=== PATIENT | female | born 1980 | race Caucasian/White ===

== ENCOUNTER 2020-02-18 09:38 | Emergency (ER) | payer OTHER, SELFPAY ==
[2020-02-18 09:42] VITALS: BP 138/82; PULSE 97; RESP 18; TEMP 36.5; O2SAT 100
--- NOTE | 2020-02-18 10:15 | ED.DENTAL ---
HPI - Dental/Oral General Chief complaint: Dental/Oral Stated complaint: Toothache Time Seen by Provider: 02/18/20 09:52 Source: patient Mode of arrival: ambulatory Limitations: no limitations History of Present Illness HPI Narrative: Patient is a 39-year-old female who presents to the emergency department with complaint of toothache. Patient reports onset of symptoms several days ago. Patient contacted her dentist and was started on clindamycin 300 mg twice daily on 02/12/2020. Patient was switched to Augmentin 875/125 twice daily on 02/16/2020. Patient was supposed to see her dentist today for further care. Patient's son had gone to the office for an appointment and had a temperature above 100 and was turned away from his appointment. Patient was contacted and advised that since her son had screened out for an elevated temperature, that she was not allowed to come in for her visit today. Patient reports development of some gum swelling around the tooth and was concerned that the infection may be getting worse. She denies any fever or other complaints. She is able to eat. She has been taking Tylenol and ibuprofen for pain. Patient had a root canal to that tooth several months ago. Complaint: tooth pain Location: Tooth # (19) Onset (ago): day(s) Duration: constant Associated symptoms: gum swelling Treatment prior to arrival: oral analgesic Related Data Allergies Allergy/AdvReac Type Severity Reaction Status Date / Time venom-wasp Allergy Swelling Verified 09/10/19 11:15 Review of Systems Review of Systems: All systems reviewed & are unremarkable except as noted in HPI and below PMFSH Past Medical History Medical History Depressive disorder, not elsewhere classified Migraine without aura, not intractable, with status migrainosus Surgical History Surgical History H/O sinus surgery (06/07/09) History of bilateral tubal ligation (2006) History of hysterectomy (10/07/07) Hx of cholecystectomy (05/13/04) Social History Social History Smoking status: Never smoker Alcohol intake: current Additional occupation/education comments: RN at [employer] Gender identity (if verbalized by the patient): Female Agree to blood products: Yes Exam Const: General: cooperative, no acute distress and alert Nutritional Appearance: well nourished Orientation/consciousness: patient oriented x3 Limitations: no limitations HENMT: Face images: 1. Mild swelling Mouth: Yes lip normal, Yes moist mucous membranes, Yes Abnormal oral and palatal mucosa present, Yes tongue abnormal not elevated, No trismus and No restricted motion Teeth and gingiva: abnormal tooth and associated gingiva lower left first molar tender and with associated gingival edema; without associated gingival fluctuance Resp: Effort & Inspection: normal respiratory effort Skin: General skin exam: normal color Neuro: General: patient oriented x3 Cognition (Neuro): normal cognition Speech: normal speech Extrem: General: normal to inspection, full ROM and no clubbing, cyanosis or edema Psych: Mental Status: mental status grossly normal Affect: normal affect Attitude: cooperative Course Course Emergency Course: Patient with mild swelling surrounding molar previously subjected to root canal. Area is tender, but there is no fluctuance to suggest definite abscess and certainly nothing amenable to drainage in the emergency department. Patient does not have any swelling or tenderness of the floor the mouth or any adenopathy in the neck to suggest Ludewig's angina or extension of localized dental infection. Patient had been on sub-therapeutic dosing of clindamycin before being switched to appropriate dosing of Augmentin. Advised to continue Augmentin and could finish out clindamycin at a
== END 2020-02-18 10:39 | disposition home or self-care (01) ==
PROVIDERS: Emergency Provider Emergency Medicine; PCP Family Medicine
DX: K04.7 Periapical abscess without sinus (principal)
CPT/HCPCS: 99281

== ENCOUNTER 2020-08-30 09:57 | Outpatient (CLI) | payer OTHER, SELFPAY ==
--- NOTE | ~2020-08-30 | MM_ITS ---
EXAMINATION: MM screening jaleel BI w bc HISTORY: Screening mammogram TECHNIQUE: Craniocaudal and mediolateral oblique 3-D tomosynthesis images were obtained and synthetic 2-D images were generated. CAD analysis was submitted and interpreted. COMPARISON: No prior mammogram is available for comparison at this institution. BREAST PARENCHYMAL COMPOSITION: There are scattered areas of fibroglandular density. FINDINGS: There is no evidence of suspicious mass, calcification, or architectural distortion to sugg est malignancy in either breast. There has been no suspicious interval change. IMPRESSION: 1. No mammographic evidence of malignancy. 2. Recommend routine screening mammography in one year. BI-RADS Category 1: Negative Reviewed, dictated and finalized at location A. P PRESIDENT
== END 2020-08-30 09:58 | disposition home or self-care (01) ==
LOC: ANHIMG 10:00
PROVIDERS: PCP Family Medicine; Visit Provider Family Medicine
DX: Z12.31 Encounter for screening mammogram for malignant neoplasm of breast (principal)
CPT/HCPCS: 77063; 77067

== ENCOUNTER 2020-10-27 01:30 | Day surgery (SDC) | payer OTHER, SELFPAY ==
[2020-10-17 11:18] VITALS: BMI 29.0
--- NOTE | 2020-10-17 11:39 | PC.NURSE ---
Pt. was Covid + on 09/11/2020. Pt. states symptoms included headache, body aches, fatigue, and nasal congestion. Per balta from Dr. Desir, pt. does not require Covid swab prior to scheduled endoscopy on 10/27/2020. Yoav Mccormack RN.
[2020-10-27 06:14] VITALS: BP 118/85; PULSE 92; RESP 20; TEMP 36.7; O2SAT 100
[2020-10-27] MEDS: LACTATED RINGERS 1,000 ML 150 ML IV CONT (06:27)
--- NOTE | 2020-10-27 07:18 | WPDANESEPPF ---
Anes - Initial Pre Proc Eval Procedure: Operation Date: 10/27/20 07:30 Proposed Procedures p Screening Colonoscopy - Tom Turner DO Date/Time: 10/27/20 07:18 Surgeon: Tom Turner DO Pre Op Diagnosis: Neoplasm Screening Patient Data Age: 40 Gender: F Height: 5 ft 2 in Weight: 74.9 kg Last Vital Signs Temp 98.0 F 10/27/20 06:14 Pulse 92 10/27/20 06:14 Resp 20 10/27/20 06:14 BP 118/85 10/27/20 06:14 Pulse Ox 100 10/27/20 06:14 Allergies Allergy/AdvReac Type Severity Reaction Status Date / Time midazolam [From Versed] Allergy Agitated Verified 10/27/20 06:12 venom-wasp Allergy Swelling Verified 10/27/20 06:12 Home Medications Medication Instructions Recorded Confirmed Type melatonin 10 mg PO HS PRN 10/17/20 10/17/20 History Patient hx anesthesia problems: none Family hx anesthesia problems: none PMFSH Past Medical History Medical History (Updated 02/19/20 @ 00:00 by Magalie Whatley) Depressive disorder, not elsewhere classified Migraine without aura, not intractable, with status migrainosus Surgical History Surgical History H/O sinus surgery (06/07/09) History of bilateral tubal ligation (2006) History of hysterectomy (10/07/07) Hx of cholecystectomy (05/13/04) Family History Family History (Updated 07/27/20 @ 13:59 by Padma Jon [facility]) Mother Diabetes mellitus Carcinoma of colon, Onset Age: 55 passed at age 61 Family history of coronary artery disease Father Hypertension Family history of pancreatic cancer, Onset Age: 65 Family history of coronary artery disease Grandparent Family history of malignant neoplasm of breast Family history of coronary artery disease Social History Social History Smoking status: Never smoker Alcohol intake: current Drinks per week: 12 Alcohol use details: saul Living arrangements: with family 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 Questions were solicited and answers provided to the satisfaction of the patient/family/POA.
--- NOTE | 2020-10-27 07:40 | PM.IMHP ---
H&P: HPI History of Present Illness Date/Time: 10/27/20 07:40 Chief Complaint: Patient here for colonoscopy Narrative: Reason for visit colonoscopy. This very pleasant lady seen in consultation request of the primary physician. Impression: Screening colonoscopy. Patient has a strong family history of colon cancer in mother, maternal grandfather, maternal aunt and a maternal grandmother with ulcerative colitis. She is here for screening colonoscopy. This is her 1st colonoscopy. GI review systems negative. Mother did have skin cancer. Migraine cephalgia. Recommendation: Colonoscopy. Genetic testing for colon cancer/Arana syndrome. History: Very pleasant lady's negative GI review systems. She has a strong family history of colon cancer. Physical examination: General: very pleasant patient in no acute distress. HEENT: Head was normocephalic sclerae is clear mouth without masses neck was supple. Heart: Rate rhythm regular without S3 or S4. Lungs: CTA. Abdomen: Soft with no guarding or rigidity. Bowel sounds were active. Neurologic: Cranial nerves 2 through 12 intact. No focal defects. No clonus. Musculoskeletal system: Revealed no joint tenderness or swelling no muscle atrophy. Extremities: Reveal no significant edema. Skin: Warm and dry with normal turgor. Mental status: intact. Patient is alert and oriented. Review of Systems Review of Systems: All systems reviewed & are unremarkable except as noted in HPI and below PMFSH Past Medical History Medical History (Updated 02/19/20 @ 00:00 by Magalie Whatley) Depressive disorder, not elsewhere classified Migraine without aura, not intractable, with status migrainosus Surgical History Surgical History H/O sinus surgery (06/07/09) History of bilateral tubal ligation (2006) History of hysterectomy (10/07/07) Hx of cholecystectomy (05/13/04) Family History Family History (Updated 07/27/20 @ 13:59 by Padma Jon 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
[2020-10-27 08:04] VITALS: BP 84/51; PULSE 74; RESP 18; O2SAT 100
[2020-10-27 08:14] VITALS: BP 99/73; PULSE 83; RESP 24; O2SAT 100
[2020-10-27 08:24] VITALS: BP 109/79; PULSE 79; RESP 24; O2SAT 100
== END 2020-10-27 08:39 | disposition home or self-care (01) ==
PROVIDERS: Family Provider Family Medicine; PCP Family Medicine; Visit Provider Internal Medicine Gastroenterology
PROC: 0DJD8ZZ Inspection of Lower Intestinal Tract, Via Natural or Artificial Opening Endoscopic (ICD-10-PCS; CPT 45378; principal; 2020-10-27 07:30)
DX: Z12.11 Encounter for screening for malignant neoplasm of colon (principal); K63.89 Other specified diseases of intestine; Z80.0 Family history of malignant neoplasm of digestive organs
CPT/HCPCS: 45378; J2001; J2704; J7120

== ENCOUNTER 2021-09-27 07:16 | Outpatient (CLI) | payer OTHER, SELFPAY ==
[2021-09-27 07:52] LABS: Alanine Aminotransferase 23 U/L (4-35); Albumin Level 4.6 g/dL (3.5-5.1); Alkaline Phosphatase 50 U/L (38-126); Anion Gap 9 mmol/L (8-16); Aspartate Amino Transferase 25 U/L (14-36); Bilirubin,Total 0.9 mg/dL (0.2-1.3); Blood Urea Nitrogen 10 mg/dL (7-17); Calcium 9.3 mg/dL (8.4-10.2); Carbon Dioxide 28 mmol/L (22-30); Chloride 102 mmol/L (98-107); Cholesterol 177 mg/dL (0-200); Estimated Glomerular Filt Rate > 60; Glucose 96 mg/dL (65-110); HDL Direct 79 mg/dL; Potassium 3.7 mmol/L (3.4-5.0); Sodium 139 mmol/L (137-145); Triglycerides 118 mg/dL (<150)
[2021-09-27 08:03] LABS: LDL Cholesterol Direct 74 mg/dL
[2021-09-27 08:06] LABS: Hematocrit 43.1 % (37.0-47.0); Hemoglobin 14.8 g/dL (12.0-15.0); Mean Corpuscular HGB Conc 34.3 g/dl (32-36); Mean Corpuscular Volume 93.1 fl (80-100); Mean Platelet Volume 9.7 fl (7.4-10.4); Platelet Count Result 224 k/mm3 (150-375); Red Blood Count 4.63 M/mm3 (4.2-5.4); Red Cell Distribution Width 12.5 % (11.5-14.5)
== END 2021-09-27 07:17 | disposition home or self-care (01) ==
PROVIDERS: PCP Family Medicine; Visit Provider Physician Assistant
DX: Z00.00 Encounter for general adult medical examination without abnormal findings (principal)
CPT/HCPCS: 36415; 80053; 80061; 84443; 85027

== ENCOUNTER 2021-09-27 08:57 | Outpatient (CLI) | payer OTHER, SELFPAY ==
--- NOTE | ~2021-09-27 | MM_ITS ---
EXAMINATION: MM screening jaleel BI w bc HISTORY: Screening mammogram TECHNIQUE: Craniocaudal and mediolateral oblique 3-D tomosynthesis images were obtained and synthetic 2-D images were generated. CAD analysis was submitted and interpreted. COMPARISON: 08/30/2020 BREAST PARENCHYMAL COMPOSITION: There are scattered areas of fibroglandular density. FINDINGS: There is no evidence of suspicious mass, calcification, or architectural distortion to sugg est malignancy in either breast. There has been no suspicious interval change. IMPRESSION: 1. No mammographic evidence of malignancy. 2. Recommend routine screening mammography in one year. BI-RADS Category 1: Negative Reviewed, dictated and finalized at location A. TENANCE CARPENTER
== END 2021-09-27 08:58 | disposition home or self-care (01) ==
LOC: ANHIMG 08:59
PROVIDERS: PCP Family Medicine; Visit Provider Physician Assistant
DX: Z12.31 Encounter for screening mammogram for malignant neoplasm of breast (principal)
CPT/HCPCS: 77063; 77067

== ENCOUNTER 2022-10-24 10:30 | Outpatient (CLI) | payer OTHER, SELFPAY ==
--- NOTE | ~2022-10-24 | XR_ITS ---
Lumbosacral Spine: AP and lateral views Clinical History: Pain Findings: The normal lordotic curve is maintained. The vertebral bodies and posterior elements are i ntact. The intervertebral disc spaces are preserved. The sacroiliac joints are normally outlined. Impression: No significant abnormality. Reviewed, dictated and finalized at [facility]. CH DIRECTOR Impression: No significant abnormality.
--- NOTE | ~2022-10-24 | XR_ITS ---
AP and lateral views of the left hip Clinical history: Pain Findings: No acute fracture or dislocation is seen. Osseous alignment is anatomic. Left hip and left SI joint are preserved. Soft tissues are unremarkable. Impression: No significant abnormality is seen. Reviewed, dictated and finalized at location . OVEMENT LEADER Impression: No significant abnormality is seen.
== END 2022-10-24 10:31 | disposition home or self-care (01) ==
PROVIDERS: PCP Family Medicine; Visit Provider Physician Assistant
DX: M54.50 Low back pain, unspecified (principal); M25.552 Pain in left hip
CPT/HCPCS: 72100; 73502

== ENCOUNTER 2022-10-29 09:54 | Outpatient (CLI) | payer OTHER, SELFPAY ==
--- NOTE | ~2022-10-29 | MM_ITS ---
EXAMINATION: MM screening jaleel BI w bc HISTORY: Screening mammogram TECHNIQUE: Craniocaudal and mediolateral oblique 3-D tomosynthesis images were obtained and synthetic 2-D images were generated. CAD analysis was submitted and interpreted. COMPARISON: 09/27/2021, 08/26/2020 bilateral screening mammogram examinations BREAST PARENCHYMAL COMPOSITION: There are scattered areas of fibroglandular density. FINDINGS: There is no evidence of suspicious mass, calcification, or architectural distortion to sugg est malignancy in either breast. There has been no suspicious interval change. IMPRESSION: 1. No mammographic evidence of malignancy. 2. Recommend routine screening mammography in one year. BI-RADS Category 1: Negative Reviewed, dictated and finalized at location A. CTIVE NARCOTICS AND VICE
== END 2022-10-29 09:55 | disposition home or self-care (01) ==
LOC: ANHIMG 09:56
PROVIDERS: PCP Family Medicine; Visit Provider Family Medicine
DX: Z12.31 Encounter for screening mammogram for malignant neoplasm of breast (principal)
CPT/HCPCS: 77063; 77067

== ENCOUNTER 2023-01-15 10:00 | Outpatient (RCR) | payer OTHER, SELFPAY ==
--- NOTE | 2022-12-10 11:38 | PCPTNOTE ---
Patient did not show up for scheduled initial evaluation this date.
--- NOTE | 2022-12-18 16:45 | PTOPEVAL1 ---
Assessment and note entered by Lian Borden, PT, DPT Evaluation Information Assessment Status Evaluation Diagnosis low back pain Onset chronic Subjective Information Pt states she has mild intermittent low back pain for years. She states recently her pain has been more consistent even sometimes waking her up from sleep. She states she now has pain first thing in the morning. She states her hip pain she thinks is d/t limping and the other compensation from her back pain. 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 Reported Pain Level Pain Score 2: Self Report Assessment PT Clinical Summary Lakeisha presents to therapy today for her initial evaluation with a diagnosis of low back pain. Today she demonstrates good LE ROM and strength in her legs sanket. She demonstrates an increased lumbar lordosis in sitting and standing that worsens with prolonged standing. She has a weakened core that does not assist to maintain her spinal alignment. Skilled physical therapy services are indicated to improve body mechanics, to address core strength, to manage pain, and to return to functional tasks and work without an increase in pain. Plan of Care Interventions Electrical Stimulation,Gait Training,Hot Pack/Cold Pack,Manual Lymph Drainage,Neuro Re-education, Patient/Caregiver Educati,Therapeutic Activities, Therapeutic Exercise PT Services Indicated Yes Treatment Frequency and 2x/wk for 4 wks Duration These treatments will address the objective and functional deficits as defined above. The patient will be advanced safely and appropriately in order for the patient to progress towards his/her prior level of function. Additional exercises will be introduced and as well as a comprehensive home exercise program upon discharge, if needed, ?to ensure carryover of functional gains achieved in the clinic. This treatment plan has been reviewed and agreement upon by the patient.
--- NOTE | 2023-01-15 11:02 | PTOPDC ---
Assessment and note entered by Lian Borden, PT, DPT Evaluation Information Assessment Status Progress Diagnosis low back pain Onset chronic Subjective Information Pt states overall she feels like she is progressing well. She ordered a sacral support belt and has worn this the last could of days during work and has noticed an improvement. 6/10 at the worst, prior to wearing the new belt. Reported Pain Level Pain Score 1: Self Report Assessment PT Clinical Summary Lakeisha presents to therapy today for her progress report following 6 visits of skilled therapy to treat her low back pain. Today she demonstrates improved LE and core strength. She demonstrates pain free active trunk ROM. She demonstrates good movement mechanics with functional tasks. She has met all of her therapy goals at this time and no longer requires skilled services. She will be discharged at this time. Plan of Care PT Services Indicated No
== END 2023-01-15 15:39 | disposition home or self-care (01) ==
LOC: ANHGOSHPT 10:00
PROVIDERS: PCP Family Medicine; Visit Provider Family Medicine
DX: M25.559 Pain in unspecified hip (principal); M54.9 Dorsalgia, unspecified
CPT/HCPCS: 97014; 97110; 97112; 97161; 97530; 99199; G0283

== ENCOUNTER 2023-02-08 09:09 | Outpatient (CLI) | payer OTHER, SELFPAY ==
[2023-02-08 09:45] LABS: Basophils Absolute Auto 0.1 K/mm3 (0.0-0.1); Basophils Percent Auto 0.9 % (0.2-1.2); Eosinophils Absolute Auto 0.2 K/mm3 (0-0.3); Eosinophils Percent Auto 4.2 % (0-4.4); Hematocrit 44.7 % (37.0-47.0); Immature Granulocyte Absolute 0.01 K/mm3 (0.00-0.031); Immature Granulocyte Percent A 0.2 % (0-0.5); Lymphocytes Absolute Auto 1.93 K/mm3 (0.9-3.2); Lymphocytes Percent Auto 34.9 % (18.3-44.2); Mean Corpuscular HGB Conc 33.6 g/dl (32-36); Mean Corpuscular Volume 89.4 fl (80-100); Mean Platelet Volume 9.7 fl (7.4-10.4); Monocytes Absolute Auto 0.4 K/mm3 (0.1-0.6); Monocytes Percent Auto 6.9 % (2.6-8.5); Neutrophils Absolute Auto 2.9 K/mm3 (1.3-6.7); Neutrophils Percent Auto 52.9 % (45.5-73.1); Platelet Count Result 218 k/mm3 (150-375); Red Cell Distribution Width 12.7 % (11.5-14.5); White Blood Count 5.5 K/mm3 (4.5-10.0)
[2023-02-08 10:13] LABS: Alanine Aminotransferase 20 U/L (6-35); Alkaline Phosphatase 39 U/L (38-126); Anion Gap 9 mmol/L (8-16); Aspartate Amino Transferase 26 U/L (14-36); Bilirubin,Total 1.3 mg/dL (0.2-1.3); Blood Urea Nitrogen 12 mg/dL (7-17); Calcium 9.2 mg/dL (8.4-10.2); Carbon Dioxide 26 mmol/L (22-30); Chloride 104 mmol/L (98-107); Cholesterol 192 mg/dL (0-200); Estimated Glomerular Filt Rate > 60; Glucose 79 mg/dL (65-110); HDL Direct 63 mg/dL; Potassium 3.8 mmol/L (3.4-5.0); Sodium 139 mmol/L (137-145); Triglycerides 77 mg/dL (<150)
[2023-02-08 10:24] LABS: LDL Cholesterol Direct 92 mg/dL
== END 2023-02-08 09:10 | disposition home or self-care (01) ==
LOC: ANHLAB 09:12
PROVIDERS: PCP Family Medicine; Visit Provider Family Medicine
DX: Z00.00 Encounter for general adult medical examination without abnormal findings (principal); R53.83 Other fatigue
CPT/HCPCS: 36415; 80053; 80061; 82607; 82728; 84443; 85025

== ENCOUNTER 2023-02-11 14:02 | Outpatient (CLI) | payer OTHER, SELFPAY ==
--- NOTE | ~2023-02-11 | MR_ITS ---
EXAMINATION: MR lumbar spine wo con DATE: 02/11/2023 14:36 INDICATION: Low back pain. TECHNIQUE: Magnetic resonance imaging (MRI) of the lumbar spine was performed without intravenous con trast. Sequences included sagittal T2-weighted FSE, sagittal T2-weighted FS FSE, sagittal T1-weighted FSE, and axial T2-weighted FSE. COMPARISON: Lumbar spine radiographs 10/24/22 FINDINGS: There is a 5.6 cm right ovarian cyst. Bone alignment is normal. Vertebral body heights are normal. There is mildly decreased disc height at L3-L4. The distal spinal cord signal intensity is no rmal. The conus medullaris is at L1-L2. The following disc levels are specifically discussed: L1-L2: The disc does not extend beyond the endplate margin. There is mild bilateral facet joint osteo arthritis. There is no neural foraminal stenosis. There is no central canal stenosis. L2-L3: The disc does not extend beyond the endplate margin. There is no facet joint osteoarthritis. T here is no neural foraminal stenosis. There is no central canal stenosis. L3-L4: The disc is bulging and has an annular fissure. There is mild bilateral facet joint osteoarthr itis. There is mild bilateral neural foraminal stenosis. There is mild central canal stenosis. L4-L5: The disc is mildly bulging. There is moderate right and severe left facet joint osteoarthritis . There is mild bilateral neural foraminal stenosis. There is no central canal stenosis. L5-S1: The disc does not extend beyond the endplate margin. There is mild bilateral facet joint osteo arthritis. There is no neural foraminal stenosis. There is no central canal stenosis. IMPRESSION: 1. Mild lumbar spondylosis. 2. 5.6 cm cyst in right ovary, likely benign. Pelvis ultrasound is recommended. Reviewed, dictated and finalized at location A.
== END 2023-02-11 14:03 | disposition home or self-care (01) ==
PROVIDERS: PCP Family Medicine; Visit Provider Family Medicine
DX: M47.896 Other spondylosis, lumbar region (principal); N83.201 Unspecified ovarian cyst, right side
CPT/HCPCS: 72148

== ENCOUNTER 2023-02-18 14:45 | Outpatient (CLI) | payer OTHER, SELFPAY ==
--- NOTE | ~2023-02-18 | US_ITS ---
EXAMINATION: US pelvic complete DATE: 02/18/2023 15:12 INDICATION: Ovarian cyst seen on MRI. Comparison:The MRI dated 02/11/2023 TECHNIQUE: Multiple transabdominal and endovaginal sonographic images of the pelvis performed. FINDINGS: The uterus is surgically absent. The right ovary measures 6.2 x 4.5 x 5.2 cm and the left ovary measures 2.8 x 2 x 1.3 cm. There is a simple right ovarian cyst measuring 5.5 cm. Left ovary measuring 2.8 x 2 x 1.3 cm with normal Doppler signal in both ovaries and follicular changes in the left ovary. There is no free fluid in the pelvis. There are no abnormal masses seen on either side. IMPRESSION: 1. Simple ovarian cyst of the right ovary measuring 5.5 cm. Reviewed, dictated and finalized at location B.
== END 2023-02-18 14:46 | disposition home or self-care (01) ==
LOC: ANHIMG 14:48
PROVIDERS: PCP Family Medicine; Visit Provider Family Medicine
DX: N83.201 Unspecified ovarian cyst, right side (principal)
CPT/HCPCS: 76856

== ENCOUNTER 2023-03-08 01:45 | Day surgery (SDC) | payer OTHER, SELFPAY ==
--- NOTE | 2023-03-06 07:36 | PM.IMHP ---
H&P: HPI History of Present Illness Date/Time: 03/06/23 07:36 Chief Complaint: pelvic pain and right ovarian cyst Narrative: this is 42-year-old female 2 para 2 status post hysterectomy who is admitted for laparoscopic RSO secondary to 5.6cm right ovarian cyst. The cyst appears benign. But is causing her severe right-sided pain. Risks and benefits reviewed full. She received the ACOG handout entitled laparoscopy. She had all questions answered. She asked to proceed PMFSH Past Medical History Medical History Depressive disorder, not elsewhere classified Migraine without aura, not intractable, with status migrainosus Surgical History Surgical History H/O sinus surgery (06/07/09) History of bilateral tubal ligation (2006) History of hysterectomy (10/07/07) Hx of cholecystectomy (05/13/04) Family History Family History Mother Diabetes mellitus Carcinoma of colon, Onset Age: 55 passed at age 61 Family history of coronary artery disease Father Hypertension Family history of pancreatic cancer, Onset Age: 65 Family history of coronary artery disease Grandparent Family history of malignant neoplasm of breast Family history of coronary artery disease Social History Social History Smoking status: Never smoker Alcohol intake: former Drinks per week: 12 Alcohol use details: saul Substance use: never Lack of Transportation: No Lack of Food: Never True Current Housing: I Have Housing Concerned About Future Housing: No Difficulty Paying Gas/Electric Bills: No Difficulty Paying for Meds: No Currently Unemployed: No Education: Bachelor's Degree Difficulty w/ Childcare or Family Care: No Living arrangements: with family Occupation/Education: occupation 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): Female Spiritual care concerns: No Agree to blood products: Yes Meds Home Medications and Allergies Home Medications Medication Instructions Recorded Confirmed Type melatonin 10 mg tablet 10 mg PO HS PRN Sleep 10/17/20 02/05/23 History dextroamphetamine-amphetamine ER 10 mg PO DAILY #30 caps 01/21/23 02/05/23 Rx 10 mg 24hr capsule,extend release (Adderall XR) dextroamphetamine-amphetamine ER 10 mg PO DAILY #30 caps 02/05/23 02/05/23 Rx 10 mg 24hr capsule,extend release (Adderall XR) dextroamphetamine-amphetamine ER 10 mg PO DAILY #30 caps 02/05/23 02/05/23 Rx 10 mg 24hr capsule,extend release (Adderall XR) doxycycline hyclate 100 mg capsule 100 mg PO DAILY 6 weeks #42 caps 02/05/23 02/05/23 Rx ivermectin 3 mg tablet 15 mg PO ONCE #5 tabs 02/05/23 02/05/23 Rx permethrin 5 % topical cream 1 applic topical Q14D 2 doses #60 02/05/23 02/05/23 Rx grams Allergies Allergy/AdvReac Type Severity Reaction Status Date / Time sulfamethoxazole Allergy Unknown Unknown Verified 02/05/23 14:35 [From Septra] trimethoprim [From Septra] Allergy Unknown Unknown Verified 02/05/23 14:35 midazolam [From Versed] Allergy Agitated Verified 02/05/23 14:35 venom-wasp Allergy Swelling Verified 02/05/23 14:35 Exam Const: General: cooperative, healthy appearing, comfortable, average body habitus and well nourished Orientation/consciousness: oriented to person, oriented to place and oriented to time HENMT: Head: normal to inspection Resp: Effort & Inspection: normal respiratory effort Cardio: Rate: regular rate Rhythm: regular rhythm Heart sounds: S1 normal heart sound present and S2 normal heart sound present GI: Inspection: normal to inspection Auscultation: normal bowel sounds : Speculum Exam - Vagina: normal appearance of the vagina Sp
[2023-03-06 11:47] VITALS: BMI 31.1
--- NOTE | 2023-03-06 11:52 | PC.NURSE ---
Report to the Outpatient Waiting Room, entrance under the green pavilion located off [facility], at time 0915 on date 03/08/23. Planned Procedure Time: 1115. Time changes happen often and if your time is changed the preop area will call you the afternoon before. - You and your visitor will be asked to self-screen and do not enter if you have any COVID symptoms. - A mask is optional within the hospital at this time. Patients may have clear liquids (water, carbonated beverages, clear teas, apple juice) until 3 hours prior to surgery with a maximum of 20 ounces. - No food from midnight until time of surgery Take the following medications with a SIP of water the morning of surgery: NONE DO NOT STOP ANY OF YOUR OTHER PRESCRIPTION MEDICATIONS PRIOR TO SURGERY ?EXCEPT THE FOLLOWING Medications to discontinue per physician: N/A Date to take last dose: N/A Please no make-up, nail chinese, hairspray, perfume, deodorant, or body powder the day of surgery. No jewelry (including any body piercings) or valuables the day of surgery, leave them at home. Please take a shower or bath the night before, or the morning of, surgery with an antibacterial soap. Wear comfortable, loose fitting clothing. - Jewelry must be removed prior to entering the operating room. Rings and piercings that are not removed may be cut off. - The hospital will not accept responsibility for valuables. - Please leave all valuables, including medications, at home the day of surgery. If you are going home after surgery, a licensed charter bus driver must drive you home. - NO public transportation without another adult if you receive anesthesia. - We recommend that an adult stay with you for 24 hours following discharge. - We also recommend that you do not drive, make important decision, drink alcoholic beverages, or take any drugs that were not prescribed by your health care provider for at least 24 hours after your discharge time. Follow any additional instructions given to you from your surgeon. If you or anyone in your household have experienced Covid symptoms in the past week, please notify your surgeon or the nurse liaison at the phone number below for possible testing. Telephone instructions given to PT - SHAVONNE SCHWAB and asked if any additional questions and then verbalized understanding. Patient advised to call surgeon office or pre surgery nurse liaison [phone] if any additional questions.
[2023-03-08] VITALS (14 sets, daily range): BP systolic 94–145; BP diastolic 61–93; PULSE 54–95; RESP 11–20; TEMP 37.2; O2SAT 94–100
--- NOTE | 2023-03-08 06:03 | WPDHPUPDATE1 ---
History and Physical Update Update Date/Time: 03/08/23 06:03 History and Physical has been reviewed, including an updated exam of the patient. There are NO changes in the patient's condition. Risks, benefits, and alternatives have been discussed and questions answered. Patient agrees to proceed with procedure.
--- NOTE | 2023-03-08 10:13 | WPDANESEPPF ---
Anes - Initial Pre Proc Eval Procedure: Operation Date: 03/08/23 11:15 Proposed Procedures p Laparoscopic Right Salpingo-oophorectomy - Naun Ji MD Date/Time: 03/08/23 10:13 Surgeon: Naun Ji MD Pre Op Diagnosis: Rt Ovarian Cyst, Pelvic Pain Patient Data Age: 42 Gender: F Height: 1.57 m Weight: 77.11 kg Allergies Allergy/AdvReac Type Severity Reaction Status Date / Time midazolam [From Versed] Allergy Unknown Agitated/co Verified 03/08/23 09:48 mbative sulfamethoxazole Allergy Unknown confusion/neck Verified 03/08/23 09:48 [From Septra] pain/migraine trimethoprim [From ] Allergy Unknown confusion/neck Verified 03/08/23 09:48 pain/migraine venom-wasp Allergy Unknown Swelling/hi Verified 03/08/23 09:48 ves Home Medications Medication Instructions Recorded Confirmed Type melatonin 10 mg tablet 10 mg PO HS PRN Sleep 10/17/20 03/08/23 History dextroamphetamine-amphetamine ER 10 mg PO DAILY #30 caps 01/21/23 03/08/23 Rx 10 mg 24hr capsule,extend release (Adderall XR) dextroamphetamine-amphetamine ER 10 mg PO DAILY #30 caps 02/05/23 03/06/23 Rx 10 mg 24hr capsule,extend release (Adderall XR) dextroamphetamine-amphetamine ER 10 mg PO DAILY #30 caps 02/05/23 03/08/23 Rx 10 mg 24hr capsule,extend release (Adderall XR) doxycycline hyclate 100 mg capsule 100 mg PO DAILY 6 weeks #42 caps 02/05/23 03/06/23 Rx ivermectin 3 mg tablet 15 mg PO ONCE #5 tabs 02/05/23 03/06/23 Rx permethrin 5 % topical cream 1 applic topical Q14D 2 doses #60 02/05/23 03/06/23 Rx grams hydrocodone 5 mg-acetaminophen 325 1 tablet PO Q4H PRN pain #20 tabs 03/08/23 Rx mg tablet Patient hx anesthesia problems: post op nausea/vomiting and other (urinary retention) Family hx anesthesia problems: none Results Review: All pre-operative results and documents have been reviewed as part of the pre-operative evaluation. [facility] Past Medical History Medical History Depressive disorder, not elsewhere classified Migraine without aura, not intractable, with status migrainosus Surgical History Surgical History H/O sinus surgery (06/07/09) History of bilateral tubal ligation (2006) History of hysterectomy (10/07/07) Hx of cholecystectomy (05/13/04) Family History Family History Mother Diabetes mellitus Carcinoma of colon, Onset Age: 55 passed at age 61 Family history of coronary artery disease Father Hypertension Family history of pancreatic cancer, Onset Age: 65 Family history of coronary artery disease Grandparent Family history of malignant neoplasm of breast Family history of coronary artery disease Social History Social History Smoking status: Never smoker Alcohol intake: former Drinks per week: 12 Alcohol use details: saul Substance use: never Substance use type: does not use Lack of Transportation: No Lack of Food: Never True Current Housing: I Have Housing Concerned About Future Housing: No Difficulty Paying Gas/Electric Bills: No Difficulty Paying for Meds: No Currently Unemployed: No Education: Bachelor's Degree Difficulty w/ Childcare or Family Care: No Living arrangements: with family Occupation/Education: occupation 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
[2023-03-08] MEDS: ACETAMINOPHEN 500 MG TABLET 1000 MG PO (10:19)
[2023-03-08] MEDS: LACTATED RINGERS 1,000 ML 30 ML IV CONT ×2 (10:20→12:00)
[2023-03-08] MEDS: KETOROLAC 15 MG/ML VIAL (*BKC) IV PUSH (10:39)
[2023-03-08] MEDS: SCOPOLAMINE 1.5 MG PATCH TRANSDERM (10:40)
--- NOTE | 2023-03-08 11:29 | W.PM.PROC2 ---
Procedure Note - Detailed Date of Procedure 03/08/23 Pre-op Diagnosis Rt Ovarian Cyst, Pelvic Pain Post-op Diagnosis Same Procedure Performed Laparoscopic right salpingo-oophorectomy lysis adhesions Surgeon Naun Ji MD Anesthesia General Indications this 42-year-old female status post hysterectomy with a complex right ovarian cyst and pelvic Findings absent uterus. Complex right ovarian mass benign in appearance with multiple adhesions Description of Procedure patient was prepped draped sterile fashion placed in dorsal lithotomy position. Under excellent general trach anesthesia weighted speculum placed in posterior fornix vagina. Sponge stick placed in the bladder broad of old lead weighted speculum was removed the gloves were changed. A supraumbilical incision made the Veress needle passed in the. Filled with CO2 gas [id number]. 5Mm trocar advanced under direct visualization patient placed in Trendelenburg and a suprapubic incision 5mm trocar advanced under visualization complex right ovarian cyst was seen which was adherent to 0 but still other a 8. A right lower quadrant incision made the 10mm trocar advanced under direct visualization assuring no injury. Using the LigaSure these were sharply dissected occasionally burned off the ovarian complex. The infundibulopelvic structure was skeletonized clamping burning cutting and brain and removing the right ovary and tube complex. This was placed in the Endo-Catch and removed through the right lower quadrant incision. Hemostasis was assured photo documentation undertaken lower sites removed. The gas removed from the abdomen. Incisions closed with 4 glue. The patient awakened went to recovery in satisfactory condition. All sponge, needle, instrument counts were correct. There were no immediate complications Estimated Blood Loss 5 Drains No Packing No Pathology Yes Complications No immediate complications Condition Stable Disposition PACU
[2023-03-08] MEDS: HYDROmorphone HCL INJ (*CRX) 1 MG/ML SYR 0.25 MG IV PUSH ×8 (11:40→12:39)
[2023-03-08] MEDS: ONDANSETRON INJ 4 MG/2 ML VIAL IV PUSH (13:02)
[2023-03-08] MEDS: diphenhydrAMINE HCl INJ 50 MG/ML VIAL 6.25 MG IV PUSH (13:51)
[2023-03-08] MEDS: PROMETHAZINE HCL 25 MG/ML AMPUL 12.5 MG IV PUSH (14:55)
--- NOTE | 2023-03-08 15:27 | SUR.PHASEII ---
1452: up to restroom to void. minimal amount of urine reported. patient nauseated and intermittently retching. Dr. Chester notified and new orders received.
== END 2023-03-08 15:45 | disposition home or self-care (01) ==
PROVIDERS: PCP Family Medicine; Visit Provider Obstetrics & Gynecology
PROC: (CPT 49320; principal; 2023-03-08 11:15)
DX: N83.11 Corpus luteum cyst of right ovary (principal); N73.6 Female pelvic peritoneal adhesions (postinfective); F32.A Depression, unspecified
CPT/HCPCS: 58661; 36415; 86850; 86900; 86901; 88305; A9270; J0330; J1100; J1170; J1200; J1885; J2250; J2405; J2550; J2704; J2710; J3010; J7030; J7120

== ENCOUNTER 2023-12-06 07:15 | Outpatient (CLI) | payer OTHER, SELFPAY ==
[2023-12-06 07:37] LABS: Basophils Absolute Auto 0.1 K/mm3 (0.0-0.1); Basophils Percent Auto 0.9 % (0.2-1.2); Eosinophils Absolute Auto 0.3 K/mm3 (0-0.3); Eosinophils Percent Auto 4.9 % (0-4.4); Hematocrit 43.3 % (37.0-47.0); Hemoglobin 14.4 g/dL (12.0-15.0); Immature Granulocyte Absolute 0.02 K/mm3 (0.00-0.031); Immature Granulocyte Percent A 0.3 % (0-0.5); Lymphocytes Absolute Auto 2.02 K/mm3 (0.9-3.2); Lymphocytes Percent Auto 29.3 % (18.3-44.2); Mean Corpuscular HGB Conc 33.3 g/dl (32-36); Mean Corpuscular Hemoglobin 30.6 pg (26-34); Mean Corpuscular Volume 92.1 fl (80-100); Mean Platelet Volume 9.1 fl (7.4-10.4); Monocytes Absolute Auto 0.5 K/mm3 (0.1-0.6); Monocytes Percent Auto 7.5 % (2.6-8.5); Neutrophils Absolute Auto 3.9 K/mm3 (1.3-6.7); Neutrophils Percent Auto 57.1 % (45.5-73.1); Platelet Count Result 253 k/mm3 (150-375); Red Cell Distribution Width 12.8 % (11.5-14.5); White Blood Count 6.9 K/mm3 (4.5-10.0)
[2023-12-06 08:22] LABS: Alanine Aminotransferase 17 U/L (6-35); Albumin Level 4.2 g/dL (3.5-5.1); Alkaline Phosphatase 59 U/L (38-126); Anion Gap 5 mmol/L (8-16); Aspartate Amino Transferase 26 U/L (14-36); Bilirubin,Total 0.8 mg/dL (0.2-1.3); Blood Urea Nitrogen 14 mg/dL (7-17); Calcium 9.3 mg/dL (8.4-10.2); Carbon Dioxide 31 mmol/L (22-30); Chloride 104 mmol/L (98-107); Estimated Glomerular Filt Rate > 60; Glucose 96 mg/dL (65-110); Sodium 140 mmol/L (137-145)
== END 2023-12-06 07:16 | disposition home or self-care (01) ==
LOC: ANHLAB 07:17
PROVIDERS: PCP Family Medicine; Visit Provider Family Medicine
DX: R53.83 Other fatigue (principal)
CPT/HCPCS: 36415; 80053; 82607; 82728; 84443; 85025

== ENCOUNTER 2024-05-12 15:23 | Outpatient (CLI) | payer OTHER, SELFPAY ==
--- NOTE | ~2024-05-12 | MM_ITS ---
EXAMINATION: MM screening [facility] BI w bc HISTORY: Screening TECHNIQUE: Craniocaudal and mediolateral oblique 3-D tomosynthesis images were obtained and synthetic 2-D images were generated. CAD analysis was submitted and interpreted. COMPARISON: Comparison to multiple prior studies sequentially, with oldest reviewed study dated 08/08. BREAST PARENCHYMAL COMPOSITION: There are scattered areas of fibroglandular density. FINDINGS: There is no evidence of suspicious mass, calcification, or architectural distortion to sugg est malignancy in either breast. There has been no suspicious interval change. IMPRESSION: 1. No mammographic evidence of malignancy. 2. Recommend routine screening mammography in one year. BI-RADS Category 1: Negative Reviewed, dictated and finalized at location B.
== END 2024-05-12 15:24 | disposition home or self-care (01) ==
LOC: ANHIMG 15:24
PROVIDERS: PCP Family Medicine; Visit Provider Family Medicine
DX: Z12.31 Encounter for screening mammogram for malignant neoplasm of breast (principal)
CPT/HCPCS: 77063; 77067

== ENCOUNTER 2024-06-21 14:37 | Emergency (ER) | payer OTHER, SELFPAY ==
--- NOTE | ~2024-06-21 | US_ITS ---
LEFT LOWER EXTREMITY VENOUS ULTRASOUND Ordering provider: Darwin Gifford MD History: . PAIN, SWELLING, R/O DVT . Comparison: None. FINDINGS: --COMMON FEMORAL: Patent and free of thrombus. Normal compressibility, phasic flow and augmentation. --PROXIMAL SUPERFICIAL FEMORAL: Patent and free of thrombus. Normal compressibility, phasic flow and augmentation. --DISTAL SUPERFICIAL FEMORAL: Patent and free of thrombus. Normal compressibility, phasic flow and au gmentation. --POPLITEAL: Patent and free of thrombus. Normal compressibility, phasic flow and augmentation. --POSTERIOR TIBIAL: Patent and free of thrombus. Normal compressibility, phasic flow and augmentation . IMPRESSION: Negative left lower extremity venous US. No deep vein thrombosis. Reviewed, dictated and finalized at location A.
[2024-06-21 14:44] VITALS: BP 130/95; PULSE 127; RESP 20; TEMP 36.5; O2SAT 96
--- NOTE | 2024-06-21 15:17 | ED.EXTPRO ---
HPI - Extremity Problem General Chief complaint: Extremity Problem,Nontraumatic Stated complaint: r/o dvt to LLE Time Seen by Provider: 06/21/24 14:47 History of Present Illness HPI Narrative: Patient is a 43-year-old female presenting with left lower extremity swelling. She was stung by a wasp several days ago on the left ankle. She has a history of allergies to wasp venom. She had immediate swelling, redness, pain to the area. She has a history of recurrent cellulitis involving distally. She was started on steroids, antibiotics, antihistamines. The swelling and redness have been getting much better but she now has pain behind the left knee. Related Data Home Medications Medication Instructions Recorded Confirmed melatonin 10 mg tablet 10 mg PO HS PRN Sleep 10/17/20 06/18/24 Allergies Allergy/AdvReac Type Severity Reaction Status Date / Time midazolam [From Versed] Allergy Unknown Agitated/co Verified 06/21/24 14:51 mbative sulfamethoxazole Allergy Unknown confusion/neck Verified 06/21/24 14:51 [From Septra] pain/migraine trimethoprim [From Septra] Allergy Unknown confusion/neck Verified 06/21/24 14:51 pain/migraine venom-wasp Allergy Unknown Swelling/hi Verified 06/21/24 14:51 ves vilazodone [From Viibryd] AdvReac Severe inorgasmia Verified 06/21/24 14:51 Review of Systems Review of Systems: All systems reviewed & are unremarkable except as noted in HPI and below PMFSH Past Medical History Medical History Depressive disorder, not elsewhere classified Migraine without aura, not intractable, with status migrainosus Pelvic pain Right ovarian cyst Surgical History Surgical History H/O oophorectomy 03/2023 H/O sinus surgery (06/07/09) History of bilateral tubal ligation (2006) History of hysterectomy (10/07/07) Hx of cholecystectomy (05/13/04) Family History Family History Mother Diabetes mellitus Carcinoma of colon, Onset Age: 55 passed at age 61 Family history of coronary artery disease Father Hypertension Family history of pancreatic cancer, Onset Age: 65 Family history of coronary artery disease Grandparent Family history of malignant neoplasm of breast Family history of coronary artery disease Social History Social History Smoking status: Never smoker Alcohol intake: former Drinks per week: 12 Alcohol use details: justinjos Substance use: never Substance use type: does not use Lack of Transportation: No Lack of Food: Never True Current Housing: I Have Housing Concerned About Future Housing: No Difficulty Paying Gas/Electric Bills: No Difficulty Paying for Meds: No Currently Unemployed: No Education: Bachelor's Degree Difficulty w/ Childcare or Family Care: No Living arrangements: with family Occupation/Education: occupation 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 EYES: PERRLA and EOMI. ENT: Grossly unremarkable NECK: Supple. CHEST: No respiratory distress. HEART: Regular rate and rhythm EXTREMITIES: Normal range of motion. L ankle with circumferential swelling with erythema laterally; DP/PT pulses 2+ SKIN: Warm, dry, as above NEURO: No focal deficits. Alert and oriented x3. PSYCH: Normal mood and affect. Course Vital Signs Vital signs: Vital Signs Temperature 97.7 F 06/21/24 14:44 Pulse Rate 127 H 06/21/24 14:44 Respiratory Rate 20 06/21/24 14:44 Blood Pressure 130/95 H 06/21/24 14:44 Pulse Oximetry 96
[2024-06-21 16:09] VITALS: BP 130/83; PULSE 111; RESP 20; O2SAT 96
== END 2024-06-21 16:11 | disposition home or self-care (01) ==
PROVIDERS: Emergency Provider Emergency Medicine; PCP Family Medicine
DX: T63.461A Toxic effect of venom of wasps, accidental (unintentional), initial encounter (principal); M79.662 Pain in left lower leg
CPT/HCPCS: 93971; 99284

== ENCOUNTER 2024-06-23 17:45 | Emergency (ER) | payer OTHER, SELFPAY ==
--- NOTE | ~2024-06-23 | US_ITS ---
EXAMINATION: US venous doppler [facility] DATE: INDICATION: pain, swelling, status post insect bite. TECHNIQUE: Grayscale images without and with compression and Doppler images of the left lower extremi ty veins were obtained. COMPARISON: 06/21/2024 FINDINGS: The left common femoral vein, profunda (deep) femoral vein, femoral vein, popliteal vein, peroneal v ein, posterior tibial veins, and greater saphenous vein are patent. IMPRESSION: Patent left lower extremity veins. No evidence of deep venous thrombosis. Reviewed, dictated and finalized at location K.
[2024-06-23 17:57] VITALS: BP 107/88; PULSE 100; RESP 15; TEMP 36.6; O2SAT 98
--- NOTE | 2024-06-23 19:31 | ED.EXTPRO ---
HPI - Extremity Problem General Chief complaint: Extremity Problem,Nontraumatic Stated complaint: r/o dvt Time Seen by Provider: 06/23/24 18:19 History of Present Illness HPI Narrative: 43-year-old female presenting with leg pain. Patient recently treated for allergic reaction and cellulitis related to a wasp stings. States that she has had worsening pain in her left leg and she is concerned for a blood clot. No chest pain or shortness of breath. Related Data Home Medications Medication Instructions Recorded Confirmed melatonin 10 mg tablet 10 mg PO HS PRN Sleep 10/17/20 06/18/24 Allergies Allergy/AdvReac Type Severity Reaction Status Date / Time midazolam [From Versed] Allergy Unknown Agitated/co Verified 06/21/24 14:51 mbative sulfamethoxazole Allergy Unknown confusion/neck Verified 06/21/24 14:51 [From Septra] pain/migraine trimethoprim [From Septra] Allergy Unknown confusion/neck Verified 06/21/24 14:51 pain/migraine venom-wasp Allergy Unknown Swelling/hi Verified 06/21/24 14:51 ves vilazodone [From Viibryd] AdvReac Severe inorgasmia Verified 06/21/24 14:51 Review of Systems Review of Systems: All systems reviewed & are unremarkable except as noted in HPI and below PMFSH Past Medical History Medical History Depressive disorder, not elsewhere classified Migraine without aura, not intractable, with status migrainosus Pelvic pain Right ovarian cyst Surgical History Surgical History H/O oophorectomy 03/2023 H/O sinus surgery (06/07/09) History of bilateral tubal ligation (2006) History of hysterectomy (10/07/07) Hx of cholecystectomy (05/13/04) Family History Family History Mother Diabetes mellitus Carcinoma of colon, Onset Age: 55 passed at age 61 Family history of coronary artery disease Father Hypertension Family history of pancreatic cancer, Onset Age: 65 Family history of coronary artery disease Grandparent Family history of malignant neoplasm of breast Family history of coronary artery disease Social History Social History Smoking status: Never smoker Alcohol intake: former Drinks per week: 12 Alcohol use details: saul Substance use: never Substance use type: does not use Lack of Transportation: No Lack of Food: Never True Current Housing: I Have Housing Concerned About Future Housing: No Difficulty Paying Gas/Electric Bills: No Difficulty Paying for Meds: No Currently Unemployed: No Education: Bachelor's Degree Difficulty w/ Childcare or Family Care: No Living arrangements: with family Occupation/Education: occupation 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 EYES: PERRLA and EOMI. ENT: Grossly unremarkable NECK: Supple. CHEST: No respiratory distress. HEART: Regular rate and rhythm EXTREMITIES: L ankle with mild erythema/edema; neurovascularly intact SKIN: Warm, dry NEURO: Alert and oriented x3. PSYCH: Normal mood and affect. Course Vital Signs Vital signs: Vital Signs Temperature 98 F 06/23/24 17:57 Pulse Rate 100 06/23/24 17:57 Respiratory Rate 15 06/23/24 17:57 Blood Pressure 107/88 06/23/24 17:57 Pulse Oximetry 98 06/23/24 17:57 Oxygen Delivery Room Air 06/23/24 17:57 Temperature 98 F 06/23/24 17:57 Pulse Rate 100 06/23/24 17:57 Respiratory Rate 15 06/23/24 17:57 Blood Pressure 107/88 06/23/24 17:57 Pulse Oximetry 98 06/23/24 17:57 Oxygen Delivery Room Air 06/23/24 17:57
== END 2024-06-23 19:32 | disposition home or self-care (01) ==
PROVIDERS: Emergency Provider Emergency Medicine; PCP Family Medicine
DX: M79.605 Pain in left leg (principal); F32.A Depression, unspecified; Z90.710 Acquired absence of both cervix and uterus; Z90.49 Acquired absence of other specified parts of digestive tract; Z79.899 Other long term (current) drug therapy; Z79.85 Long-term (current) use of injectable non-insulin antidiabetic drugs
CPT/HCPCS: 93971; 99284

== ENCOUNTER 2024-08-19 01:16 | Day surgery (SDC) | payer OTHER, SELFPAY ==
[2024-08-13 09:47] VITALS: BMI 33.0
[2024-08-19 12:58] VITALS: BP 123/74; PULSE 90; RESP 18; TEMP 36.9; O2SAT 100
[2024-08-19] MEDS: LACTATED RINGERS 1,000 ML 150 ML IV CONT (13:07)
--- NOTE | 2024-08-19 13:25 | P.PNAN_ITS ---
Anes - Initial Pre Proc Eval Procedure: Operation Date: 08/19/24 14:00 Proposed Procedures p Colonoscopy - Fabián Segura MD Date/Time: 08/19/24 13:25 Surgeon: Fabián Segura MD Pre Op Diagnosis: hx of colon polyps Patient Data Age: 44 Gender: F Height: 1.57 m Weight: 81 kg Last Vital Signs Temp 36.9 C 08/19/24 12:58 Pulse 90 08/19/24 12:58 Resp 18 08/19/24 12:58 BP 123/74 08/19/24 12:58 Pulse Ox 100 08/19/24 12:58 O2 Del Method Room Air 08/19/24 12:58 Allergies Allergy/AdvReac Type Severity Reaction Status Date / Time midazolam [From Versed] Allergy Unknown Agitated/co Verified 08/19/24 12:56 mbative sulfamethoxazole Allergy Unknown confusion/neck Verified 08/19/24 12:56 [From Junra] pain/migraine trimethoprim [From Junra] Allergy Unknown confusion/neck Verified 08/19/24 12:56 pain/migraine venom-wasp Allergy Unknown Swelling/hi Verified 08/19/24 12:56 ves vilazodone [From Viibryd] AdvReac Severe inorgasmia Verified 08/19/24 12:56 Home Medications Medication Instructions Recorded Confirmed Type Ozempic 0.25 mg or 0.5 mg (2 mg/3 0.5 mg (0.736 mL) subcut WEEKLY #3 06/18/24 08/19/24 Rx mL) subcutaneous pen injector mL (semaglutide) dextroamphetamine-amphetamine ER 10 mg PO DAILY #30 caps 06/18/24 08/19/24 Rx 10 mg 24hr capsule,extend release (Adderall XR) dextroamphetamine-amphetamine ER 10 mg PO DAILY #30 caps 06/18/24 08/19/24 Rx 10 mg 24hr capsule,extend release (Adderall XR) dextroamphetamine-amphetamine ER 10 mg PO DAILY #30 caps 07/23/24 08/19/24 Rx 10 mg 24hr capsule,extend release (Adderall XR) Patient hx anesthesia problems: none Family hx anesthesia problems: none Results Review: All pre-operative results and documents have been reviewed as part of the pre- operative evaluation. [facility] Past Medical History Medical History Depressive disorder, not elsewhere classified Migraine without aura, not intractable, with status migrainosus Pelvic pain Right ovarian cyst Surgical History Surgical History H/O oophorectomy 03/2023 H/O sinus surgery (06/07/09) History of bilateral tubal ligation (2006) History of hysterectomy (10/07/07) Hx of cholecystectomy (05/13/04) Family History Family History Mother Diabetes mellitus Carcinoma of colon, Onset Age: 55 passed at age 61 Family history of coronary artery disease Father Hypertension Family history of pancreatic cancer, Onset Age: 65 Family history of coronary artery disease Grandparent Family history of malignant neoplasm of breast Family history of coronary artery disease Social History Social History Smoking status: Never smoker Alcohol intake: current Drinks per week: 2 Alcohol use details: saul Substance use: never Substance use type: does not use Lack of Transportation: No Lack of Food: Never True Current Housing: I Have Housing Concerned About Future Housing: No Difficulty Paying Gas/Electric Bills: No Difficulty Paying for Meds: No Currently Unemployed: No Education: Bachelor's Degree Difficulty w/ Childcare or Family Care: No Living arrangements: with family Occupation/Education: occupation 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 Informed Consent: The patient's anesthetic plan and its attendant risks and benefits were discussed with the patient/family/POA. Questions were solicited and answers provided to the satisfaction of the patient/family/POA.
--- NOTE | 2024-08-19 13:25 | PM.HPGS ---
History of Present Illness History of Present Illness Consent: Risks, benefits, and alternatives have been discussed and questions answered. Patient agrees to proceed with procedure. Chief complaint: hx of colon polyps Narrative: Lakeisha Soto is a 44 year old female here for colonoscopy, last one 2020, mother had colon cancer Review of Systems Review of Systems: All systems reviewed & are unremarkable except as noted in HPI and below PMFSH Past Medical History Medical History Depressive disorder, not elsewhere classified Migraine without aura, not intractable, with status migrainosus Pelvic pain Right ovarian cyst Surgical History Surgical History H/O oophorectomy 03/2023 H/O sinus surgery (06/07/09) History of bilateral tubal ligation (2006) History of hysterectomy (10/07/07) Hx of cholecystectomy (05/13/04) Family History Family History Mother Diabetes mellitus Carcinoma of colon, Onset Age: 55 passed at age 61 Family history of coronary artery disease Father Hypertension Family history of pancreatic cancer, Onset Age: 65 Family history of coronary artery disease Grandparent Family history of malignant neoplasm of breast Family history of coronary artery disease Social History Social History Smoking status: Never smoker Alcohol intake: current Drinks per week: 2 Alcohol use details: saul Substance use: never Substance use type: does not use Lack of Transportation: No Lack of Food: Never True Current Housing: I Have Housing Concerned About Future Housing: No Difficulty Paying Gas/Electric Bills: No Difficulty Paying for Meds: No Currently Unemployed: No Education: Bachelor's Degree Difficulty w/ Childcare or Family Care: No Living arrangements: with family Occupation/Education: occupation Additional occupation/education comments: RN at [employer] Gender identity (if verbalized by the patient): Female Spiritual care concerns: No Agree to blood products: Yes Meds Home Medications and Allergies Home Medications Medication Instructions Recorded Confirmed Type Ozempic 0.25 mg or 0.5 mg (2 mg/3 0.5 mg (0.736 mL) subcut WEEKLY #3 06/18/24 08/19/24 Rx mL) subcutaneous pen injector mL (semaglutide) dextroamphetamine-amphetamine ER 10 mg PO DAILY #30 caps 06/18/24 08/19/24 Rx 10 mg 24hr capsule,extend release (Adderall XR) dextroamphetamine-amphetamine ER 10 mg PO DAILY #30 caps 06/18/24 08/19/24 Rx 10 mg 24hr capsule,extend release (Adderall XR) dextroamphetamine-amphetamine ER 10 mg PO DAILY #30 caps 07/23/24 08/19/24 Rx 10 mg 24hr capsule,extend release (Adderall XR) Allergies Allergy/AdvReac Type Severity Reaction Status Date / Time midazolam [From Versed] Allergy Unknown Agitated/co Verified 08/19/24 12:56 mbative sulfamethoxazole Allergy Unknown confusion/neck Verified 08/19/24 12:56 [From Junra] pain/migraine trimethoprim [From Junra] Allergy Unknown confusion/neck Verified 08/19/24 12:56 pain/migraine venom-wasp Allergy Unknown Swelling/hi Verified 08/19/24 12:56 ves vilazodone [From Viibryd] AdvReac Severe inorgasmia Verified 08/19/24 12:56 Vital Signs Vital Signs - 24 hr 08/19/24 12:58 Temperature 98.5 F Pulse Rate 90 Respiratory Rate 18 Blood Pressure 123/74 Pulse Oximetry 100 Oxygen Delivery Room Air Exam Const: General: comfortable and no acute distress HENMT: Face/Nose/Sinus: Normal nares present Eyes: General: appearance normal, both eyes and all related structures Neck: Neck: no JVD Resp: Auscultation: clear to auscultation bilaterally Cardio: Rate: regular rate Rhythm: regular rhythm GI: Inspection: non-distended GI Palp: Yes Soft to palpation Skin: General skin exam: normal color Neuro: General: gait normal Speech: normal speech Extrem: General: normal to inspection Psych: Mental Status: mental status grossly normal Assessment and Plan Assessment and plan (1) Family history of colon cancer in mother: Code(s): Z80.0 - Family history of malignant neoplasm of digestive organs Status: Chronic Assessment and Plan: colonoscopy
[2024-08-19 13:45] VITALS: BP 93/59; PULSE 85; RESP 18; O2SAT 100
[2024-08-19 13:55] VITALS: BP 98/70; PULSE 93; RESP 18; O2SAT 100
[2024-08-19 14:05] VITALS: BP 101/56; PULSE 69; RESP 18; O2SAT 100
== END 2024-08-19 14:13 | disposition home or self-care (01) ==
PROVIDERS: PCP Family Medicine; Visit Provider Internal Medicine Gastroenterology
PROC: 0DJD8ZZ Inspection of Lower Intestinal Tract, Via Natural or Artificial Opening Endoscopic (ICD-10-PCS; CPT 45378; principal; 2024-08-19 14:00)
DX: Z12.11 Encounter for screening for malignant neoplasm of colon (principal); K57.30 Diverticulosis of large intestine without perforation or abscess without bleeding; Z80.0 Family history of malignant neoplasm of digestive organs; Z86.0100 Personal history of colon polyps, unspecified; E66.9 Obesity, unspecified; Z68.32 Body mass index [BMI] 32.0-32.9, adult
CPT/HCPCS: 45378; J2704; J7120

== ENCOUNTER 2024-12-16 14:50 | Outpatient (CLI) | payer OTHER, SELFPAY ==
--- NOTE | ~2024-12-16 | XR_ITS ---
XR hand LT min 3V Ordering provider: Martina Rao MD History: . S63.619A - Unspecified sprain of unspecified finger, init... . Comparison: None. FINDINGS: BONES: No acute fracture or dislocation. JOINT SPACES: Well maintained. SOFT TISSUES: Unremarkable. IMPRESSION: No acute osseous abnormality left hand. Reviewed, dictated and finalized at location A.
== END 2024-12-16 14:51 | disposition home or self-care (01) ==
PROVIDERS: PCP Family Medicine; Visit Provider Family Medicine
DX: S63.619A Unspecified sprain of unspecified finger, initial encounter (principal); X58.XXXA Exposure to other specified factors, initial encounter
CPT/HCPCS: 73130